=== PATIENT | male | born 1970 | race Caucasian/White ===

== ENCOUNTER 2022-04-10 08:30 | Outpatient (CLI) | payer OTHER | END 2022-04-10 08:31 | disposition home or self-care (01) | LOC: ULT 08:30 | PROVIDERS: ATTEND Internal Medicine Gastroenterology | DX: B18.1 Chronic viral hepatitis B without delta-agent (principal); R10.11 Right upper quadrant pain; K21.9 Gastro-esophageal reflux disease without esophagitis; K76.0 Fatty (change of) liver, not elsewhere classified; R16.0 Hepatomegaly, not elsewhere classified | CPT/HCPCS: 76705 ==

== ENCOUNTER 2022-12-26 07:04 | Outpatient (CLI) | payer OTHER | END 2022-12-26 07:05 | disposition home or self-care (01) | LOC: BICULT 07:04 | PROVIDERS: ATTEND Internal Medicine Gastroenterology | DX: B18.1 Chronic viral hepatitis B without delta-agent (principal); K60.2 Anal fissure, unspecified; R93.2 Abnormal findings on diagnostic imaging of liver and biliary tract | CPT/HCPCS: 76705 ==